=== PATIENT | female | born 1980 | race Caucasian/White ===

== ENCOUNTER 2020-03-03 12:04 | Emergency (ER) | payer OTHER ==
[2020-03-03 12:22] VITALS: BP 128/88
--- NOTE | 2020-03-03 13:21 | XRAY Report ---
PROCEDURE: Knee 2 View RT INDICATIONS: swelling knee TECHNIQUE: 2 views of the right knee(s) were acquired. COMPARISON: None. FINDINGS: Bones: No fractures or dislocations. No suspicious bony lesions. Soft tissues: There is likely a small joint effusion. No suspicious soft tissue calcifications. IMPRESSION: Small joint effusion without underlying bony abnormality. If pain persists, cross-sectio nal imaging with MRI could be used to further characterize findings. Reviewed by: Jelena Buchanan MD on 03/03/2020 12:20 PM [facility] Approved by: Jelena Buchanan MD on 03/03/2020 12:20 PM [facility] Station ID: [id number]
--- NOTE | 2020-03-03 13:38 | ED Physician Documentation ---
History of Present Illness - Stated complaint Stated Complaint: SWELLING RT KNEE - Chief complaint Chief Complaint: Trauma Ext - History obtained from History obtained from: Patient - Additonal information Additional information: 39-year-old woman with history of PCOS, left knee arthritis presents with right knee swelling after hearing a pop yesterday while walking. She had sudden onset pain localized to the medial right knee, nonradiating, aching, severe, constant, worse with range of motion and associated with swelling. Since that time she is still able to bear weight but has pain with moving the knee and wants to be evaluated. Normal sensation and movement distal to the knee. 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 : None Musculoskeletal: None Derm: None - Past Surgical History Past Surgical History: Yes /METAL FABRICATING INSPECTOR: section - Present Medications Home Medications: Ambulatory Orders Medication Instructions Recorded Confirmed metFORMIN [Glucophage] 500 mg PO BIDWM 03/03/20 03/03/20 - Allergies Allergies/Adverse Reactions: Allergies Allergy/AdvReac Type Severity Reaction Status Date / Time No Known Drug Allergies Allergy Verified 03/03/20 12:21 - Social History Does the pt smoke?: No Smoking Status: Never smoker PD ED PE NORMAL - Vitals Vital signs reviewed: Yes - General General: Alert and oriented X 3 - HEENT HEENT: Atraumatic - Derm Derm: Normal color - Extremities Extremities: Other (Right knee medial aspect swollen and tender to palpation. Tender with range of motion. Nonerythematous without any palpable warmth. Normal distal pulses. Normal sensation and capillary refill. Normal movement.) Results - Vitals Vitals: Vital Signs - 24 hr 03/03/20 12:19 Temperature 36.2 C L Heart Rate 85 Respiratory 16 Rate Blood Pressure 128/88 H O2 Saturation 98 Oxygen O2 Source Room air PD MEDICAL DECISION MAKING - ED course ED course: 39-year-old woman presents with likely tendon tear. Knee immobilizer, crutches provided. Return precautions given. Patient will follow up with orthopedics. Departure - Departure Disposition: 01 Home, Self Care Clinical Impression: Knee effusion, right, Injury of knee, right Condition: Good Instructions: ED RICE Follow-Up: Hernan Jay MD [Provider Admit Priv/Credential] - Comments: You have been seen for an injury to your right knee. Your x-ray does not show any breaks in the bone but it does show some fluid buildup around the knee. You likely had a partial tear of the tendon attaching at the knee. You need to get lots of rest, elevate the leg, compress it with Pablo bandages and do not weight- bear for couple days. It will take up to 6 weeks to heal completely. Return to the ED for any new or worsening symptoms. Follow-up with orthopedics if you do not improve. Discharge Date/Time: 03/03/20 13:58
== END 2020-03-03 13:58 | disposition home or self-care (01) ==
LOC: ED 12:04
DX: S89.91XA Unspecified injury of right lower leg, initial encounter (principal); X50.9XXA Other and unspecified overexertion or strenuous movements or postures, initial encounter; Y93.01 Activity, walking, marching and hiking; M25.461 Effusion, right knee; E11.9 Type 2 diabetes mellitus without complications; Z79.84 Long term (current) use of oral hypoglycemic drugs
CPT/HCPCS: 99282; 99283